=== PATIENT | male | born 2000 | race African-American/Black ===

== ENCOUNTER 2021-06-22 15:56 | Emergency (ER) | payer OTHER, SELFPAY ==
[~2021-06-22] VITALS: Ht 177.8 cm; Wt 65.8 kg
[2021-06-22 16:17] VITALS: BP_SYST 113
--- NOTE | 2021-06-22 16:35 | NUR ---
PT DENIES ANY ACUTE TRAUMA OR INJURY, MOVING ALL EXTREMITIES. RESP EVEN AND UNLABORED, ON RA @99%. SKIN W/D/I. WAITINF FOR ERR MD SNOW.
--- NOTE | 2021-06-22 16:38 | NUR ---
PT C/O LOWER BACK PAIN 03/20, MOANING IN PAIN. DR OSORIO NOTIFIED.
--- NOTE | 2021-06-22 16:53 | NUR ---
DR OSORIO AT BEDSIDE FOR EXAM.
[2021-06-22] MEDS ORDERED: KETOROLAC TROMETHAMINE 60 MG/2 ML VIAL IM ONE ×2 (17:00)
--- NOTE | 2021-06-22 17:14 | NUR ---
PT NOW REPORTING HEADACHE/FEVERS/GENERAL MALAISE, PT TAKEN OUT TO TENT DUE TO COVID PRECUATIONS. CN AWARE.
--- NOTE | 2021-06-22 18:26 | NUR ---
PT IS LAYING ON [employer]. REPORTS FEELIG BETTER. PT HAS NO FACIAL GRIMACING OR MOANING AT THIS TIME.
--- NOTE | 2021-06-22 19:08 | NUR ---
Nabil [phone]
[2021-06-22 22:26] VITALS: BP_SYST 125
--- NOTE | 2021-06-22 22:28 | NUR ---
Patient given written and verbal discharge instructions and verbalizes understanding. ER MD discussed with patient the results and treatment provided. Patient in stable condition. ID arm band removed. Patient educated on pain management and to follow up with PMD. Pain Scale 2. Opportunity for questions provided and answered. Medication side effect fact sheet provided.
== END 2021-06-22 22:28 | disposition home or self-care (01) ==
LOC: SED 15:56
DX: U07.1 COVID-19 (principal)
CPT/HCPCS: 87426; 96372; 99283; J1885; 36415